=== PATIENT | male | born 1990 | race Caucasian/White ===

== ENCOUNTER 2021-04-11 16:41 | Emergency (ER) | payer OTHER ==
[2021-04-11] MEDS ORDERED: IBU800 MG PO (19:37)
== END 2021-04-11 20:25 | disposition home or self-care (01) ==
LOC: ER1 16:41
DX: M54.50 Low back pain, unspecified (principal); I10 Essential (primary) hypertension; V49.9XXA Car occupant (driver) (passenger) injured in unspecified traffic accident, initial encounter
CPT/HCPCS: 72131; 99283